=== PATIENT | male | born 1965 | race Caucasian/White ===

== ENCOUNTER 2020-05-25 10:40 | Emergency (ER) | payer BC ==
[~2020-05-25] VITALS: Ht 177.8 cm; Wt 79.4 kg
[~2020-05-25 10:40] MED LIST: PERCOCET 325 MG1 TA2 PO; TORADOL10 MG PO; ZOFRAN ODT4 MG SL
[2020-05-25 11:23] LABS: BASO # 0.1 10*3/uL (0.0-0.1); BASO % 0.5 % (0.0-1.0); EOS % 0.3 % (1.0-4.0); HEMATOCRIT 40.2 % (42.0-52.0); LYMPH # 0.7 10*3/uL (1.3-4.4); LYMPH % 6.5 % (27.0-41.0); MEAN CELL VOLUME 89.1 fl (80.0-94.0); MEAN CORPUSCULAR HGB 28.6 pg (27.0-31.0); MEAN CORPUSCULAR HGB CONC 32.1 g/dl (33.0-37.0); MEAN PLATELET VOLUME 10.9 fl (9.6-12.3); MONO # 0.4 10*3/uL (0.1-1.0); MONO % 3.4 % (3.0-9.0); NEUT # 9.1 10*3/uL (2.3-7.9); PLATELET COUNT AUTOMATED 314 10*3/uL (130-400); RED BLOOD COUNT 4.51 10*6/uL (4.50-5.90); WHITE BLOOD COUNT 10.2 10*3/uL (4.8-10.8)
[2020-05-25 11:38] LABS: ALBUMIN 4.1 gm/dl (3.1-4.5); ALKALINE PHOSPHATASE 85 U/L (45-117); BUN 14 mg/dl (7-24); CHLORIDE 110 mmol/L (98-107); CREATININE 1.29 mg/dL (0.70-1.30); LIPASE 100 U/L (73-393); POTASSIUM 3.9 mmol/L (3.5-5.1); SGOT/AST 20 IU/L (3-35); SGPT/ALT 48 U/L (12-78); SODIUM 142 mmol/L (136-145); TOTAL PROTEIN 7.8 gm/dL (6.4-8.2)
[2020-05-25 12:52] LABS: BILIRUBIN 1+ (Negative); BLOOD 3+ (Negative); CLARITY Turbid (Clear); COLOR Orange (Yellow); GLUCOSE Negative (Negative); KETONE Trace (Negative); LEUKO ESTERASE 1+ (Negative); NITRITE Negative (Negative); PH 5.5 (4.5-8.0); SPECIFIC GRAVITY >= 1.030 (1.001-1.030); UROBILINOGEN 0.2 E.U./dl (0.0-1.0)
[2020-05-25 13:05] LABS: RBC TNTC rbc/hpf (0-2)
[2020-05-25 13:06] LABS: BACTERIA 3+; CALCIUM OXALATE CRYSTALS 2+
[2020-05-25] MEDS ORDERED: ZOFRAN4 MG PO (13:27)
[2020-05-25] MEDS ORDERED: FLOMAX0.4 MG PO (13:27)
[2020-05-25] MEDS ORDERED: Motrin,Rufen800 MG PO (13:27)
[2020-05-25] MEDS ORDERED: PERCOCET 5-3251 EACH PO (13:27)
== END 2020-05-25 13:38 | disposition home or self-care (01) ==
LOC: ED 10:40
PROVIDERS: Emergency Medicine
DX: N20.1 Calculus of ureter (principal); Z79.899 Other long term (current) drug therapy

== ENCOUNTER 2020-12-02 14:03 | Inpatient (IN) | payer BC ==
[~2020-12-02] VITALS: Ht 177.8 cm; Wt 80.9 kg
[~2020-12-02 14:03] MED LIST changes: +FLOMAX0.4 MG PO; +Motrin,Rufen800 MG PO; +PERCOCET 5-3251 EACH PO; +ZOFRAN4 MG PO
[2020-12-02 14:22] VITALS: BP 122/90
[2020-12-02 16:36] LABS: BILIRUBIN Negative (Negative); BLOOD Negative (Negative); CLARITY Cloudy (Clear); COLOR Yellow (Yellow); GLUCOSE Negative (Negative); KETONE 2+ (Negative); LEUKO ESTERASE Trace (Negative); MEAN CELL VOLUME 83.8 fl (80.0-94.0); MEAN CORPUSCULAR HGB 26.9 pg (27.0-31.0); MEAN CORPUSCULAR HGB CONC 32.1 g/dl (33.0-37.0); NITRITE Negative (Negative); PLATELET COUNT AUTOMATED 315 10*3/uL (130-400); RED BLOOD COUNT 5.01 10*6/uL (4.50-5.90); RED CELL DISTRI WIDTH 14.3 % (0-14.5); SPECIFIC GRAVITY 1.025 (1.001-1.030); WHITE BLOOD COUNT 10.7 10*3/uL (4.8-10.8)
[2020-12-02 16:37] LABS: PH 8.5 (4.5-8.0)
[2020-12-02 16:57] LABS: BACTERIA TRACE; MUCOUS 2+; RBC 0-2 rbc/hpf (0-2)
[2020-12-02 16:58] LABS: TOTAL CELLS COUNTED 100 #CELLS
[2020-12-02 16:59] LABS: PLATELET SUFFICIENCY NORMAL (NORMAL)
[2020-12-02 17:06] LABS: ALBUMIN 4.7 gm/dl (3.1-4.5); ALKALINE PHOSPHATASE 93 U/L (45-117); BUN 12 mg/dl (7-24); CHLORIDE 108 mmol/L (98-107); CREATININE 1.09 mg/dL (0.70-1.30); POTASSIUM 4.1 mmol/L (3.5-5.1); SGOT/AST 20 IU/L (3-35); SGPT/ALT 32 U/L (12-78); SODIUM 140 mmol/L (136-145); TOTAL PROTEIN 8.3 gm/dL (6.4-8.2)
[2020-12-02 18:01] LABS: LIPASE 91 U/L (73-393)
[2020-12-02 18:07] LABS: TROPONIN I < 0.015 ng/ml (<0.045)
[2020-12-02 19:38] VITALS: BP 107/59
[2020-12-02 20:00] VITALS: BP 123/65
[2020-12-03] VITALS: BP 118/66
[2020-12-03 06:17] LABS: CHLORIDE 111 mmol/L (98-107); POTASSIUM 3.6 mmol/L (3.5-5.1); SODIUM 142 mmol/L (136-145)
[2020-12-03 06:29] LABS: BASO # 0.1 10*3/uL (0.0-0.1); BASO % 0.6 % (0.0-1.0); EOS # 0.1 10*3/uL (0.0-0.4); EOS % 0.6 % (1.0-4.0); HEMATOCRIT 36.5 % (42.0-52.0); LYMPH # 1.4 10*3/uL (1.3-4.4); LYMPH % 15.8 % (27.0-41.0); MEAN CELL VOLUME 85.3 fl (80.0-94.0); MEAN CORPUSCULAR HGB 27.1 pg (27.0-31.0); MEAN CORPUSCULAR HGB CONC 31.8 g/dl (33.0-37.0); MEAN PLATELET VOLUME 11.4 fl (9.6-12.3); MONO # 0.6 10*3/uL (0.1-1.0); MONO % 6.7 % (3.0-9.0); NEUT # 6.7 10*3/uL (2.3-7.9); PLATELET COUNT AUTOMATED 252 10*3/uL (130-400); RED BLOOD COUNT 4.28 10*6/uL (4.50-5.90); RED CELL DISTRI WIDTH 14.7 % (0-14.5); WHITE BLOOD COUNT 8.8 10*3/uL (4.8-10.8)
[2020-12-03 06:34] LABS: ALBUMIN 3.6 gm/dl (3.1-4.5); ALKALINE PHOSPHATASE 74 U/L (45-117); BUN 13 mg/dl (7-24); CHOLESTEROL 228 mg/dL (<200); CREATININE 1.05 mg/dL (0.70-1.30); FREE T4 0.94 ng/dl (0.76-1.46); LDL CHOLESTEROL 168 mg/dL (9-159); SGOT/AST 15 IU/L (3-35); SGPT/ALT 23 U/L (12-78); THYROID STIM HORMONE (HS) 0.729 uIU/ml (0.358-4.75); TOTAL PROTEIN 6.5 gm/dL (6.4-8.2); TRIGLYCERIDES 107 mg/dl (<150)
[2020-12-03 06:59] LABS: VITAMIN D, 25-HYDROXY 35.4 ng/mL (30-100)
[2020-12-03 08:00] VITALS: BP 101/62
[2020-12-03 12:00] VITALS: BP 112/65
[2020-12-03 16:00] VITALS: BP 131/68
[2020-12-03] MEDS ORDERED: ATORVASTATIN CA40 M1 PO (16:00)
[2020-12-03] MEDS ORDERED: CIPRO500 MG PO (16:00)
[2020-12-03] MEDS ORDERED: FLAGYL500 MG PO (16:00)
== END 2020-12-03 17:49 | disposition home or self-care (01) | DRG 389 ==
LOC: ED 14:03 → EDHOLD 17:08 → 5E 19:33
PROVIDERS: Student in an Organized Health Care Education/Training Program; ADMIT Family Medicine; ATTEND Family Medicine
DX: K56.600 Partial intestinal obstruction, unspecified as to cause (principal); K57.32 Diverticulitis of large intestine without perforation or abscess without bleeding; E78.5 Hyperlipidemia, unspecified; E86.0 Dehydration; E83.41 Hypermagnesemia; R73.9 Hyperglycemia, unspecified; N20.0 Calculus of kidney; E87.8 Other disorders of electrolyte and fluid balance, not elsewhere classified; E88.09 Other disorders of plasma-protein metabolism, not elsewhere classified; Z79.899 Other long term (current) drug therapy